=== PATIENT | male | born 1950 | race Caucasian/White ===

== ENCOUNTER 2018-06-08 07:58 | Day surgery (SDC) | payer MEDICARE, BC ==
[~2018-06-08] VITALS: Ht 170.3 cm; Wt 105.0 kg
[2018-06-08] VITALS (11 sets, daily range): BP systolic 102–137; BP diastolic 59–91; PULSE 57–73; TEMP 98.4
[~2018-06-08 07:58] MED LIST: ASPIR-LOW81 MG PO; ASPIR-LOX325 MG PO; COZAAR100 MG PO; FERROUS SU325 MG/TAB PO; FOLIC ACID PO; HCTZ 25MG25 MG PO; MOBIC PO; PREVACID 30MG30 M1 PO; VASOTEC10 MG PO; VITAMIN C500 MG PO
[2018-06-08 08:34] LABS: HEMATOCRIT 44.8 % (42.0-52.0); MEAN CELL VOLUME 93 fl (80.0-100.0); MEAN CORPUSCULAR HEMOGLOBIN 31 pg (27.0-31.0); MEAN CORPUSCULAR HGB CONC 34 g/dl (33.0-37.0); MEAN PLATELET VOLUME 10.3 fl (7.4-10.4); PLATELET COUNT 226 K/mm3 (130-400); RED BLOOD COUNT 4.81 M/mm3 (4.20-5.60); REDCELL DISTRIBUTION WIDTH-CV 12.7 % (11.5-14.5)
[2018-06-08 08:43] LABS: CALCIUM 9.2 mg/dL (8.4-10.2); CREATININE, serum 0.85 (0.66-1.25); POTASSIUM 3.7 mmol/L (3.4-5.0)
[2018-06-08 08:44] LABS: PROTHROMBIN TIME 11.5 SECONDS (9.7-12.8)
[2018-06-08] MEDS ORDERED: HYGROTON 2525 MG/TAB PO (08:45)
[2018-06-08] MEDS ORDERED: COREG12.5 MG PO (08:47)
[2018-06-08] MEDS ORDERED: LIPITOR 40MG TA40 MG PO (08:48)
[2018-06-08] MEDS ORDERED: ASPIRIN E.C. 8181 MG PO (08:48)
--- NOTE | 2018-06-08 10:39 | NUR ---
SEE MERGE REPORT FOR MEDICATION ADMINISTRATION TIMES WELL INTRA/POST SEDATION ASSESSMENTS.
--- NOTE | 2018-06-08 11:10 | NUR ---
Pt returned to [facility] 12 per bed s/p heart cath. Pt resting well, at bedside.
--- NOTE | 2018-06-08 14:00 | NUR ---
R radial compession band removed. R wrist remains soft, C/D/I. Site covered with bandaid and gauze and wrapped with coban. Pt vicente well.
--- NOTE | 2018-06-08 14:41 | NUR ---
Pt has ambulated, voided and vicente PO intake s n/v. PIV removed with catheter intact.
--- NOTE | 2018-06-08 15:00 | NUR ---
Pt discharged per w/c by nurse with .
== END 2018-06-08 15:59 | disposition home or self-care (01) ==
LOC: COL.CAR 07:58
PROVIDERS: Internal Medicine Cardiovascular Disease
DX: R07.89 Other chest pain (principal); R06.09 Other forms of dyspnea; I45.10 Unspecified right bundle-branch block; I10 Essential (primary) hypertension; E78.5 Hyperlipidemia, unspecified; E66.9 Obesity, unspecified; K21.9 Gastro-esophageal reflux disease without esophagitis; Z98.52 Vasectomy status; Z96.652 Presence of left artificial knee joint; Z79.82 Long term (current) use of aspirin
CPT/HCPCS: J1644; J2250; J3010; Q9967